=== PATIENT | female | born 1945 | race Caucasian/White ===

== ENCOUNTER 2018-01-12 15:02 | Emergency (ER) | payer OTHER ==
[2018-01-12] MEDS: ASPIRIN 325 MG TAB PO ×2 (16:00→16:08)
[2018-01-12] MEDS: morphine 4 MG/ML VIAL IV (16:01)
[2018-01-12] MEDS: ONDANSETRON 4 MG INJ IV (16:01)
[2018-01-12 16:18] LABS: TROPONIN-I < 0.012 ng/ml (0.00-0.12)
== END 2018-01-12 17:17 | disposition home or self-care (01) ==
LOC: E/R 15:02
DX: S29.011A Strain of muscle and tendon of front wall of thorax, initial encounter (principal); I10 Essential (primary) hypertension; X58.XXXA Exposure to other specified factors, initial encounter; Y92.9 Unspecified place or not applicable; Z87.891 Personal history of nicotine dependence; Z79.82 Long term (current) use of aspirin; Z79.01 Long term (current) use of anticoagulants
CPT/HCPCS: 71045; 84484; 93005; 96374; 96375; 99285-25

== ENCOUNTER 2018-02-23 21:38 | Emergency (ER) | payer OTHER | END 2018-02-24 07:30 | disposition home or self-care (01) | LOC: E/R 21:38 | DX: R05 Cough (principal); I10 Essential (primary) hypertension; Z87.891 Personal history of nicotine dependence | CPT/HCPCS: 71045; 99284-25 ==

== ENCOUNTER 2019-04-27 14:29 | Emergency (ER) | payer OTHER ==
[2019-04-27 15:39] LABS: ADD MAN DIFF? NO
[2019-04-27 15:43] LABS: BASOPHILS % 0.1 % (0.0-2.0); EOSINOPHILS # 0.2 10^3/ul (0.0-0.5); EOSINOPHILS % 2.5 % (0.0-7.0); HEMATOCRIT 40.7 % (37.0-47.0); HEMOGLOBIN 13.3 g/dl (12.0-16.0); LYMPHOCYTES # 2.1 10^3/ul (0.8-2.9); LYMPHOCYTES % 26.2 % (15.0-51.0); MEAN CORPUSCULAR HEMOGLOBIN 29.4 pg (29.0-33.0); MEAN CORPUSCULAR HGB CONC 32.7 g/dl (32.0-37.0); MEAN PLATELET VOLUME 10.4 fl (7.4-10.4); MONOCYTE # 0.7 10^3/ul (0.3-0.9); MONOCYTES % 8.2 % (0.0-11.0); NEUTROPHILS % 62.5 % (39.0-77.0); PLATELET COUNT 283 10^3/UL (140-415); RED BLOOD COUNT 4.52 10^6/ul (4.20-5.40); RED CELL DISTRIBUTION WIDTH 11.9 % (11.5-14.5)
[2019-04-27 17:00] LABS: ANION GAP 6 (5-13); BLOOD UREA NITROGEN 16 mg/dl (7-20); CALCIUM 8.6 mg/dl (8.4-10.2); CARBON DIOXIDE 25 mmol/L (21-31); CHLORIDE 109 mmol/L (97-110); CREATININE 1.35 mg/dl (0.44-1.00); GLUCOSE 92 mg/dl (70-220); POTASSIUM 4.1 mmol/L (3.5-5.1); SODIUM 140 mmol/L (135-144)
[2019-04-27] MEDS: IPRATROPIUM (NEB) 0.5 MG/2.5 ML AMP NEB (17:07)
[2019-04-27] MEDS: ALBUTEROL 0.083% (NEB) 2.5 MG/3 ML AMP NEB (17:07)
[2019-04-27 17:11] LABS: TROPONIN-I < 0.012 ng/ml (0.000-0.120)
[2019-04-27 17:33] LABS: B-TYPE NATRIURETIC PEPTIDE 420 PG/ML (0-125)
== END 2019-04-27 18:43 | disposition home or self-care (01) ==
LOC: E/R 14:29
DX: J20.9 Acute bronchitis, unspecified (principal); I10 Essential (primary) hypertension; Z86.73 Personal history of transient ischemic attack (TIA), and cerebral infarction without residual deficits; Z87.891 Personal history of nicotine dependence; Z79.01 Long term (current) use of anticoagulants
CPT/HCPCS: 36415; 71045; 80048; 83880; 84484; 85025; 93005; 94664; 99285-25